=== PATIENT | female | born 1995 | race Caucasian/White ===

== ENCOUNTER 2020-07-08 14:15 | Outpatient (CLI) | payer OTHER ==
[2020-07-08 14:57] LABS: HEMOGLOBIN 12.6 gm/dl (12.3-15.3); RED BLOOD COUNT 4.82 M/UL (4.00-5.10); WHITE BLOOD COUNT 11.8 K/UL (4.5-11.0)
[2020-07-09] MEDS ORDERED: PRENATAL TABLE1 EAC1 PO (12:16)
[2020-07-09] MEDS ORDERED: IBUPROFEN800 MG PO (14:02)
[2020-07-09] MEDS ORDERED: HYDROCODON-ACE1 EAC4 PO (14:02)
[2020-07-09] MEDS ORDERED: COLACE100 MG PO (14:02)
[2020-07-09] MEDS ORDERED: FERREX 150 FOR1 EACH PO (14:02)
== END 2020-07-08 15:30 | disposition home or self-care (01) ==
LOC: GENOP 14:15
PROVIDERS: Obstetrics & Gynecology
DX: Z01.812 Encounter for preprocedural laboratory examination (principal); O24.419 Gestational diabetes mellitus in pregnancy, unspecified control; Z3A.00 Weeks of gestation of pregnancy not specified
CPT/HCPCS: 36415; 81001; 85025; J1885; J2274; J2405; J2590; J2795; J3010

== ENCOUNTER 2020-07-09 09:41 | Inpatient (IN) | payer OTHER ==
[~2020-07-09] VITALS: Ht 157.5 cm; Wt 92.5 kg
[2020-07-09] MEDS ORDERED: PRENATAL TABLE1 EAC1 PO (12:16)
[2020-07-09 12:37] LABS: BUN/CREATININE RATIO 18 (0-10)
[2020-07-09] MEDS ORDERED: COLACE100 MG PO (14:02)
[2020-07-09] MEDS ORDERED: IBUPROFEN800 MG PO (14:02)
[2020-07-09] MEDS ORDERED: HYDROCODON-ACE1 EAC4 PO (14:02)
[2020-07-09] MEDS ORDERED: FERREX 150 FOR1 EACH PO (14:02)
[2020-07-10 06:14] LABS: HEMOGLOBIN 10.1 gm/dl (12.3-15.3)
== END 2020-07-11 14:36 | disposition home or self-care (01) | DRG 788 ==
LOC: OB 09:41
PROVIDERS: ADMIT Obstetrics & Gynecology
PROC: 4A1HXCZ Monitoring of Products of Conception, Cardiac Rate, External Approach (ICD-10-PCS; 2020-07-09)
PROC: 10D00Z1 Extraction of Products of Conception, Low, Open Approach (ICD-10-PCS; principal; 2020-07-09 10:45)
DX: O34.211 Maternal care for low transverse scar from previous cesarean delivery (principal); O24.429 Gestational diabetes mellitus in childbirth, unspecified control; Z3A.39 39 weeks gestation of pregnancy; Z37.0 Single live birth; O99.284 Endocrine, nutritional and metabolic diseases complicating childbirth; E28.2 Polycystic ovarian syndrome; Z20.822 Contact with and (suspected) exposure to COVID-19; O99.52 Diseases of the respiratory system complicating childbirth; J45.909 Unspecified asthma, uncomplicated; Z83.3 Family history of diabetes mellitus; Z82.49 Family history of ischemic heart disease and other diseases of the circulatory system; Z82.5 Family history of asthma and other chronic lower respiratory diseases; Z87.891 Personal history of nicotine dependence; O99.892 Other specified diseases and conditions complicating childbirth; N73.6 Female pelvic peritoneal adhesions (postinfective)
CPT/HCPCS: 36415; 80048; 81001; 82962; 85014; 85018; 85025; 94760; C9113; J1200; J1885; J2274; J2300; J2405; J2590; J2795; J3010; J7030; J7120; U0003